=== PATIENT | male | born 1975 | race Caucasian/White ===

== ENCOUNTER 2020-10-18 17:05 | Emergency (ER) | payer OTHER, SELFPAY | END 2020-10-18 18:15 | disposition home or self-care (01) | LOC: NAV ERS 17:05 | DX: S43.402A Unspecified sprain of left shoulder joint, initial encounter (principal); I10 Essential (primary) hypertension; Z79.899 Other long term (current) drug therapy; Y04.0XXA Assault by unarmed brawl or fight, initial encounter ==